=== PATIENT | female | born 1935 | race Caucasian/White ===

== ENCOUNTER → 2023-05-28 07:42 | Outpatient (REF) | payer MEDICARE, OTHER, SELFPAY | LOC: RAD 07:42 | PROVIDERS: ATTENDING PHYSICIAN Physician Assistant; FAMILY PHYSICIAN Family Medicine | DX: E83.52 Hypercalcemia (principal) | CPT/HCPCS: 78071; A9500 ==

== ENCOUNTER → 2023-06-01 11:15 | Outpatient (REF) | payer MEDICARE, OTHER, SELFPAY | LOC: RAD 11:15 | PROVIDERS: ATTENDING PHYSICIAN Physician Assistant; FAMILY PHYSICIAN Family Medicine | DX: E83.52 Hypercalcemia (principal) | CPT/HCPCS: 76536 ==

== ENCOUNTER 2023-07-27 06:36 | Day surgery (SDC) | payer MEDICARE, OTHER, SELFPAY ==
[2023-07-23 08:17] VITALS: BMI 24.3
[2023-07-27] VITALS (10 sets, daily range): BP systolic 119–141; BP diastolic 74–89; BMI 24.3
[2023-07-27] MEDS: NORMOSOL-R 1000 IV (11:36)
[2023-07-27] MEDS: TYLENOL 1000 MG PO (11:36)
[2023-07-27] MEDS: NEURONTIN 300 MG PO (11:36)
[2023-07-27] MEDS: HEPARIN 5000 UNITS SC (11:36)
[2023-07-27 13:03] LABS: Turbo PTH 234.7 pg/ml (13.6-85.8)
--- NOTE | 2023-07-27 13:30 | OR.RPT ---
Operative Report
Operative Report
Date of Operation: July 27, 2023
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
Postoperative Diagnosis: Same
Surgeon: Benitez Amaya M.D.
Operation: Neck exploration, Right and Left Superior Parathyroidectomy - 28908
Anesthesia: GET
Estimated Blood Loss: 5 cc
Drains: None
Specimen: �Right and left upper neck nodules, rule out parathyroid adenomas
Complications: �None
Procedure:
The patient was taken to the operating room and placed in the usual supine position. After adequate general endotracheal anesthesia was established, the patient's neck was extended, prepped, and draped in the typical sterile fashion. A 4 cm
transcervical incision was made two fingerbreadths above the sternal notch. The skin incision was made with the #15 blade, and this was taken through the skin into the subcutaneous tissue. The underlying platysma muscle was divided, and subplatysmal
flaps were created superiorly to the thyroid cartilage and inferiorly to the sternal notch. Strap muscles were identified and at the midline.
Attention was turned to the patient's right side of the neck. The right thyroid lobe was mobilized medially. During this process, the right recurrent laryngeal nerve was identified and preserved throughout the surgery. The right upper neck nodule
was identified and noted to be enlarged, excised, and sent to the pathology department, which showed a hypercellular parathyroid gland. The normal-appearing right inferior parathyroid gland was identified and preserved. The intraoperative PTH failed
to normalize. Therefore, the attention was turned to the left side of the neck. The left thyroid lobe was mobilized medially. During this process, the left recurrent laryngeal nerve was identified and preserved throughout the surgery. The left upper
neck nodule was identified and noted to be enlarged, excised, and sent to the pathology department, which showed a hypercellular parathyroid gland. The normal-appearing left inferior parathyroid gland was identified and preserved.
After obtaining adequate hemostasis, the strap muscles were reapproximated with #3-0 Vicryl in a running fashion. The platysma muscle was reapproximated with #3-0 Vicryl in an interrupted fashion, and the skin was approximated with #4-0 Monocryl in
a running subcuticular fashion. The Steri-Strips and sterile dressings were placed. The patient tolerated the procedure well. The final instrument, needle, and sponge counts were correct. The patient was extubated and transferred to the PACU.
[2023-07-27 13:43] LABS: Turbo PTH 91.3 pg/ml (13.6-85.8)
--- NOTE | 2023-07-27 14:33 | W.IMMPOSTOP ---
Surgical Immed Post Op Note
-
Primary Surgeon:
Assisting Surgeon:
Pre-op Diagnosis:
Post-op Diagnosis:
Procedure Performed:
Anesthesia Type:
Specimen / Cultures:
Estimated Blood Loss:
Complications:
Operative Findings:
[2023-07-27 14:56] LABS: Turbo PTH 19.8 pg/ml (13.6-85.8)
== END 2023-07-27 16:38 | disposition home or self-care (01) ==
LOC: SDS 06:36
PROVIDERS: ATTENDING PHYSICIAN Surgery
DX: E21.0 Primary hyperparathyroidism (principal)
CPT/HCPCS: 60500; 88305; 83970

== ENCOUNTER → 2023-08-17 13:36 | Outpatient (REF) | payer MEDICARE, OTHER, SELFPAY | LOC: HWRAD 13:36 | PROVIDERS: ATTENDING PHYSICIAN Physician Assistant; FAMILY PHYSICIAN Family Medicine | DX: E83.2 Disorders of zinc metabolism (principal); R79.89 Other specified abnormal findings of blood chemistry; Z78.0 Asymptomatic menopausal state | CPT/HCPCS: 77080; 77081 ==

== ENCOUNTER → 2025-03-08 09:50 | Outpatient (REF) | payer MEDICARE, OTHER, SELFPAY ==
[2025-03-08 10:57] LABS: Hematocrit 39.0 % (37.0-47.0); Hemoglobin 13.0 g/dL (12.0-16.0); Mean Corp Hgb Conc. 33.3 g/dL (33.0-37.0); Mean Corpuscular Volume 90.1 fL (81.0-99.0); Nucleated Red Blood Cells % 0 %; Platelet Count 384 10^3/uL (130-400); Red Cell Dist. Width 13.4 % (11.5-14.5)
[2025-03-08 11:37] LABS: ALT (SGPT) 21 U/L (0-35); AST (SGOT) 25 U/L (14-36); Albumin 4.6 g/dl (3.5-5.0); Alkaline Phosphatase 51 U/L (38-126); Calcium 9.5 mg/dl (8.4-10.2); Carbon Dioxide 25 mmol/L (22-30); Glucose 90 mg/dl (70-99); Potassium 4.5 mmol/L (3.5-5.1); Sodium 136 mmol/L (135-145); Total Protein 7.6 g/dl (6.3-8.2); eGFR > 60.00
[2025-03-08 11:57] LABS: Blood Urea Nitrogen 12 mg/dl (7-17); Chloride 103 mmol/L (98-107)
== END ==
LOC: RAD 09:50
PROVIDERS: ATTENDING PHYSICIAN Nurse Practitioner Family
DX: J40 Bronchitis, not specified as acute or chronic (principal); R07.9 Chest pain, unspecified; K21.9 Gastro-esophageal reflux disease without esophagitis; R06.09 Other forms of dyspnea
CPT/HCPCS: 36415; 71046; 80053; 83880; 85025

== ENCOUNTER → 2025-03-20 10:02 | Outpatient (REF) | payer MEDICARE, OTHER, SELFPAY | LOC: WDC 10:02 | PROVIDERS: ATTENDING PHYSICIAN Nurse Practitioner Family | DX: N63.10 Unspecified lump in the right breast, unspecified quadrant (principal) | CPT/HCPCS: 77062; 77066 ==